=== PATIENT | female | born 1945 | race Caucasian/White ===

== ENCOUNTER 2018-03-04 14:58 | Inpatient (IN) | payer MEDICARE, MEDICAID ==
[~2018-03-04] VITALS: Ht 160 cm; Wt 44.9 kg
[2018-03-04] MEDS ORDERED: SODIUM CHLORIDE FLUSH 10ML SYR IVF ONE (15:30)
--- NOTE | 2018-03-04 15:30 | NUR ---
FIRST CONTACT WITH PT. ERP AT BEDSIDE FOR INITIAL ASSESSMENT. [place] NOT[place]. LARGELY NON-VERBAL D/T HX OF ALS. SON REPORTS INCREASING BLE EDEMA, WORSENING X SEVERAL DAYS. +2 PITTING EDEMA BLE NOTED. PT DENIES CP/SOB/ORTHOPNEA. SON REPORTS THAT PT REFUSES HOME DIURETICS AND THAT "NOONE IS ARROUND TO HELP HER ADMINISTER HER MEDICATIONS, THE ONLY WAY SHE'LL GET THEM IS HERE" AND "SHE CAN'T HAVE HER LEGS UP". SON STATES THAT PT HAS CAREGIVERS THAT VISIT PT REGULARLY BUT ARE "NOT ALLOWED TO HELP WITH MEDS". PT/SON REFUSING TO CHANGE PT TO GOWN. FEEDING TUBE IN PLACE, PT DENIES CONCERNS REGARDING TUBE/FEEDING. BP/SPO2/ECG MONITOR IN PLACE. LAB IN TO DRAW
[2018-03-04 16:08] LABS: MEAN CORPUSCULAR HEMOGLOBIN 29.1 pg (27.0-34.8); MEAN CORPUSCULAR HGB CONC 32.6 g/dL (32.4-35.8); MEAN CORPUSCULAR VOLUME 89.3 fL (80-100); MEAN PLATELET VOLUME 7.9 fL (7.4-10.4); PLATELET COUNT 307 x10^3/uL (130-400); RED BLOOD COUNT 4.37 x10^6/uL (3.82-5.3); RED CELL DISTRIBUTION WIDTH 15.7 % (9.6-15.2)
--- NOTE | 2018-03-04 16:30 | NUR ---
US IN PROGRESS
[2018-03-04 16:38] LABS: ALANINE AMINOTRANSFERASE 21 U/L (12-78); ALBUMIN 3.5 g/dL (3.4-5.0); ANION GAP 9 mmol/L (5-15); CHLORIDE 113 mmol/L (98-107); CREATININE 0.73 mg/dL (0.55-1.02)
[2018-03-04 16:42] LABS: MD YES
[2018-03-04 16:43] LABS: ALKALINE PHOSPHATASE 111 U/L (45-117); BILIRUBIN,TOTAL 0.7 mg/dL (0.2-1.0); TOTAL PROTEIN 6.6 g/dL (6.4-8.2)
[2018-03-04 16:46] LABS: BASOS#(MANUAL) 0.28 x10^3/uL (0-0.1); BASOS% (MANUAL) 2 % (0-1); LYMPH#(MANUAL) 9.11 x10^3/uL (1-3.4); LYMPHS% (MANUAL) 66 % (22-44); MONOS#(MANUAL) 0.55 x10^3/uL (0.3-2.7); MONOS% (MANUAL) 4 % (2-9); NRBC % (MANUAL) 2 % (0-1); REACTIVE LYMPHS # (MANUAL) 0.55 x10^3/uL (0-0); REACTIVE LYMPHS % (MANUAL) 4 % (0-0); SEG#(MANUAL) 3.31 x10^3/uL (1.8-6.8); SEGS% (MANUAL) 24 % (42-75)
[2018-03-04 16:48] LABS: <PLATELET ESTIMATE> ADEQUATE; <PLT MORPHOLOGY> NORMAL PLT MORPH; <RBC MORPHOLOGY> NORMAL
[2018-03-04] MEDS ORDERED: SILVER SULF. CRM 1% , 25GM ONE (17:18)
--- NOTE | 2018-03-04 17:20 | NUR ---
ERP AT BEDSIDE. POC IS ADMIT, PT AND FRIEND IN AGREEMENT. IV ESTABLISHED. PT CHANGED TO GOWN. WOLFF AT BEDSIDE FOR WOUND CARE.
[2018-03-04] MEDS ORDERED: FAMO40TA61 PO (17:22)
[2018-03-04] MEDS ORDERED: CLOP75TA PO (17:22)
[2018-03-04] MEDS ORDERED: LOSA50TA14 PO (17:22)
[2018-03-04] MEDS ORDERED: CLOP75TA52 PO (17:22)
[2018-03-04] MEDS ORDERED: AMLO10TA8 PO (17:22)
[2018-03-04] MEDS ORDERED: SILVER SULF. CRM 1% , 25GM TP ONE (17:30)
[2018-03-04] MEDS ORDERED: FUROSEMIDE 40 MG/4 ML IV ONE (17:30)
[2018-03-04] MEDS ORDERED: FUROSEMIDE 40 MG/4 ML ONE (18:04)
--- NOTE | 2018-03-04 18:11 | NUR ---
REPORT TO [facility] BLOOM ON FLOOR.
[2018-03-04 18:56] VITALS: BP 134/64
[2018-03-04] MEDS ORDERED: morphine SULFATE 10 MG/ML, 1ML IVPush PRN (19:00)
[2018-03-04] MEDS ORDERED: hydrALAzine 20 MG/ML, 1ML IVPush PRN (19:00)
[2018-03-04] MEDS ORDERED: ONDANSETRON 2MG/ML, 2ML IVPush PRN (19:00)
[2018-03-04] MEDS ORDERED: ACETAMINOPHEN 325 MG TABLET PO PRN (19:00)
[2018-03-04 19:26] LABS: MEAN CORPUSCULAR HEMOGLOBIN 29.3 pg (27.0-34.8); MEAN CORPUSCULAR VOLUME 88.7 fL (80-100); MEAN PLATELET VOLUME 7.7 fL (7.4-10.4); PLATELET COUNT 306 x10^3/uL (130-400); RED CELL DISTRIBUTION WIDTH 15.3 % (9.6-15.2)
[2018-03-04 19:50] LABS: BASOPHILS # (AUTO) 0.02 x10^3/uL (0-0.1); BASOPHILS % (AUTO) 0 % (0-1); EOSINOPHILS # (AUTO) 0.12 x10^3/uL (0-0.4); EOSINOPHILS % (AUTO) 1 % (1-7); LYMPHOCYTES # (AUTO) 11.85 x10^3/uL (1-3.4); LYMPHOCYTES % (AUTO) 76 % (22-44); MD SCAN; MONOCYTES # (AUTO) 0.56 x10^3/uL (0.2-0.8); MONOCYTES % (AUTO) 4 % (2-9); NEUTROPHILS # (AUTO) 3.12 x10^3/uL (1.8-6.8); NEUTROPHILS % (AUTO) 20 % (42-75)
[2018-03-04] MEDS: NICOTINE 14MG/24 HR PATCH.TD24 TD SCH ×2 (22:30→22:31)
[2018-03-04] MEDS: ENOXAPARIN 40 MG/0.4 ML SQ SCH (22:30)
[2018-03-04] MEDS: FAMOTIDINE 40 MG TABLET PO SCH (22:30)
[2018-03-04] MEDS: AMPICILLIN/SULBACTAM 3 GM in SODIUM CHLORIDE 0.9% 100 ML IV SCH (22:31)
[2018-03-05 01:28] VITALS: BP 105/52
[2018-03-05] MEDS: AMPICILLIN/SULBACTAM 3 GM in SODIUM CHLORIDE 0.9% 100 ML IV SCH ×4 (05:16→22:37)
[2018-03-05 05:18] LABS: CHLORIDE 113 mmol/L (98-107)
[2018-03-05 05:39] LABS: ALANINE AMINOTRANSFERASE 17 U/L (12-78); ALKALINE PHOSPHATASE 93 U/L (45-117); ANION GAP 8 mmol/L (5-15); BILIRUBIN,TOTAL 0.7 mg/dL (0.2-1.0); CALCIUM 8.3 mg/dL (8.5-10.1); CREATININE 0.62 mg/dL (0.55-1.02); TOTAL PROTEIN 5.5 g/dL (6.4-8.2)
[2018-03-05 07:30] VITALS: BP 131/63
[2018-03-05] MEDS ORDERED: AMLODIPINE 10 MG TAB PO SCH (09:00)
[2018-03-05] MEDS ORDERED: LOSARTAN 50MG TABLET PO SCH (09:00)
[2018-03-05] MEDS: CLOPIDOGREL 75 MG TABLET PO SCH (09:57)
[2018-03-05] MEDS ORDERED: ACETAMINOPHEN 325 MG TABLET PO PRN (11:00)
[2018-03-05 13:35] VITALS: BP 116/55
[2018-03-05 19:55] VITALS: BP 127/62
[2018-03-05] MEDS: FAMOTIDINE 40 MG TABLET PO SCH (20:29)
[2018-03-05] MEDS: NICOTINE 14MG/24 HR PATCH.TD24 TD SCH (20:29)
[2018-03-05] MEDS: ENOXAPARIN 40 MG/0.4 ML SQ SCH (20:29)
[2018-03-06 00:28] VITALS: BP 119/61
[2018-03-06 02:23] LABS: MICROSCOPIC NOT IND
[2018-03-06 02:33] LABS: CULTURE INDICATED? NO
[2018-03-06] MEDS: AMPICILLIN/SULBACTAM 3 GM in SODIUM CHLORIDE 0.9% 100 ML IV SCH ×3 (05:20→18:25)
[2018-03-06 07:45] VITALS: BP 147/62
[2018-03-06] MEDS: LOSARTAN 50MG TABLET PO SCH (09:51)
[2018-03-06] MEDS: CLOPIDOGREL 75 MG TABLET PO SCH (09:51)
[2018-03-06] MEDS: AMLODIPINE 10 MG TAB PO/NG SCH (09:51)
[2018-03-06 13:08] VITALS: BP 126/52
[2018-03-06 18:30] VITALS: BP 126/62
[2018-03-06] MEDS: NICOTINE 14MG/24 HR PATCH.TD24 TD SCH (19:00)
[2018-03-06] MEDS: ENOXAPARIN 40 MG/0.4 ML SQ SCH (21:24)
[2018-03-06] MEDS: FAMOTIDINE 40 MG TABLET PO SCH (21:24)
[2018-03-07] MEDS: AMPICILLIN/SULBACTAM 3 GM in SODIUM CHLORIDE 0.9% 100 ML IV SCH ×4 (00:09→21:00)
[2018-03-07 01:28] VITALS: BP 110/55
[2018-03-07 05:17] LABS: MEAN CORPUSCULAR HGB CONC 32.7 g/dL (32.4-35.8); MEAN CORPUSCULAR VOLUME 88.7 fL (80-100); PLATELET COUNT 244 x10^3/uL (130-400); RED BLOOD COUNT 3.68 x10^6/uL (3.82-5.3); RED CELL DISTRIBUTION WIDTH 15.2 % (9.6-15.2)
[2018-03-07 05:26] LABS: ANION GAP 6 mmol/L (5-15); CALCIUM 7.8 mg/dL (8.5-10.1); CHLORIDE 112 mmol/L (98-107)
[2018-03-07 05:27] LABS: CREATININE 0.54 mg/dL (0.55-1.02)
[2018-03-07 05:45] LABS: BASOPHILS # (AUTO) 0.03 x10^3/uL (0-0.1); BASOPHILS % (AUTO) 0 % (0-1); EOSINOPHILS # (AUTO) 0.04 x10^3/uL (0-0.4); EOSINOPHILS % (AUTO) 0 % (1-7); LYMPHOCYTES # (AUTO) 7.33 x10^3/uL (1-3.4); LYMPHOCYTES % (AUTO) 41 % (22-44); MD SCAN; MONOCYTES # (AUTO) 0.64 x10^3/uL (0.2-0.8); MONOCYTES % (AUTO) 4 % (2-9); NEUTROPHILS # (AUTO) 9.98 x10^3/uL (1.8-6.8); NEUTROPHILS % (AUTO) 55 % (42-75)
[2018-03-07 07:54] VITALS: BP 123/50
[2018-03-07] MEDS: AMLODIPINE 10 MG TAB PO/NG SCH (11:04)
[2018-03-07] MEDS: CLOPIDOGREL 75 MG TABLET PO SCH (11:04)
[2018-03-07] MEDS: LOSARTAN 50MG TABLET PO SCH (11:05)
[2018-03-07 12:48] VITALS: BP 144/65
[2018-03-07] MEDS: NICOTINE 14MG/24 HR PATCH.TD24 TD SCH (16:54)
[2018-03-07 20:00] VITALS: BP 145/66
[2018-03-07] MEDS: ENOXAPARIN 40 MG/0.4 ML SQ SCH (21:00)
[2018-03-07] MEDS: FAMOTIDINE 40 MG TABLET PO SCH (21:00)
[2018-03-08 01:58] VITALS: BP 122/62
[2018-03-08] MEDS: AMPICILLIN/SULBACTAM 3 GM in SODIUM CHLORIDE 0.9% 100 ML IV SCH ×2 (02:12→07:47)
[2018-03-08] MEDS: CLOPIDOGREL 75 MG TABLET PO SCH (07:45)
[2018-03-08] MEDS: AMLODIPINE 10 MG TAB PO/NG SCH (07:45)
[2018-03-08] MEDS: LOSARTAN 50MG TABLET PO SCH (07:45)
[2018-03-08 08:18] VITALS: BP 131/65
[2018-03-08] MEDS ORDERED: NICO-486 TD (08:23)
[2018-03-08] MEDS ORDERED: AMOX1TAB64 PO (08:23)
== END 2018-03-08 09:38 | disposition home or self-care (01) | DRG 602 ==
LOC: ED 17:03 → EDIP 17:04 → SUATTDRO 17:22 → ED 17:46 → 3NE 18:37
PROVIDERS: ADMIT Hospitalist; ATTEND Hospitalist
DX: L03.115 Cellulitis of right lower limb (principal); G93.41 Metabolic encephalopathy; E43 Unspecified severe protein-calorie malnutrition; E41 Nutritional marasmus; G12.21 Amyotrophic lateral sclerosis; Z68.1 Body mass index [BMI] 19.9 or less, adult; E87.3 Alkalosis; R60.9 Edema, unspecified; I10 Essential (primary) hypertension; I25.10 Atherosclerotic heart disease of native coronary artery without angina pectoris; J44.9 Chronic obstructive pulmonary disease, unspecified; K21.9 Gastro-esophageal reflux disease without esophagitis; Z51.5 Encounter for palliative care; Z66 Do not resuscitate; Z79.02 Long term (current) use of antithrombotics/antiplatelets; Z79.899 Other long term (current) drug therapy; Z80.8 Family history of malignant neoplasm of other organs or systems; Z90.710 Acquired absence of both cervix and uterus; Z87.891 Personal history of nicotine dependence; Z99.3 Dependence on wheelchair; Z93.1 Gastrostomy status; Z91.81 History of falling; Z88.8 Allergy status to other drugs, medicaments and biological substances
CPT/HCPCS: 36415; 36600; 70450; 71045; 80048; 80053; 81003; 82803; 83735; 83880; 84100; 84443; 85025; 87040; 93005; 93970; 96374; G0378; J0295; J1650; J1940